=== PATIENT | female | born 1960 | race Caucasian/White ===

== ENCOUNTER 2016-10-28 22:24 | Emergency (ER) | payer MEDICARE ==
[~2016-10-28] VITALS: Ht 152.4 cm; Wt 87.0 kg
[2016-10-28 22:34] VITALS: BP 157/92; PULSE 90; RESP 16; TEMP 98.3; O2SAT 99
[2016-10-29] MEDS ORDERED: TETANUS/DIPHTHERIA TOXOID ADULT 0.5 ML VIAL IM ONE (00:30)
--- NOTE | 2016-10-29 00:57 | RADHPO ---
EXAM DATE/TIME: 10/29/2016 00:43 [place] COMPARISON: No previous studies available for comparison. INDICATIONS : Right hand pain with swelling. MEDICAL HISTORY : None. SURGICAL HISTORY : None. ENCOUNTER: Initial ACUITY: 1 day PAIN SCORE: 8/10 LOCATION: Right upper extremity FINDINGS: 3 views of the right hand reveal an acute fracture involving the base of the fourth and fifth metacar pals. Both have extension to the articular surface. No significant distraction or angulation. Remaini ng bony structures are intact. Dorsal soft tissue swelling noted. CONCLUSION: Acute fourth and fifth metacarpal fractures as detailed above. Don Myers Jr., MD on October 29, 2016 at 0:55 Board Certified Radiologist. This report was verified electronically.
[2016-10-29] MEDS ORDERED: ONDANSETRON ODT 4 MG TAB PO ONE (01:15)
[2016-10-29] MEDS ORDERED: ACETAMINOPHEN/HYDROcodone 325 MG/5 MG TAB PO ONE (01:15)
--- NOTE | 2016-10-29 01:17 | PD ---
HPI Chief Complaint: Injury Time Seen by Provider: 00:17 Travel History International Travel<30 days: No Contact w/Intl Traveler<30days: No Traveled to known affect area: No History of Present Illness HPI 56-year-old female presents to the emergency department by private transportation for injury to her right hand and abrasion to her right knee. Reportedly just prior to arrival to the emergency department patient had non- syncopal trip and fall over her dogs injuring her right hand with deformity of her right fourth finger and abrasion to her right knee. Patient states she did not hit her head did not have loss of consciousness did not injure her neck back chest ribs abdomen or pelvis. Patient's tetanus status is not current. Patient is diabetic. Patient states she was able to reduce her finger back into normal alignment after injury. Patient denies any finger or hand wrist forearm elbow upper arm or shoulder numbness tingling or weakness. Patient rates her hand pain 9/10 in intensity. Patient is noted to have bruising and swelling of the hand with no open wounds of the hand or fingers. PFSH Past Medical History Narrative Medical Diabetes hypertension depression and hypothyroidism 3 no tobacco use no alcohol use nursing notes reviewed Depression: Yes Cardiovascular Problems: Yes (HTN) Diabetes: Yes Patient Takes Glucophage: Yes (0900 10/28/16) Diminished Hearing: No Hypertension: Yes Thyroid Disease: Yes (HYPOTHYROIDISM) Tetanus Vaccination: Unknown Influenza Vaccination: Yes ?: Not LMP: MENOPAUSE Menopausal: Yes Past Surgical History Section: Yes Gynecologic Surgery: Yes ( X 3) Social History Alcohol Use: No Tobacco Use: No Substance Use: No Allergies-Medications (Allergen,Severity, Reaction): Coded Allergies: No Known Allergies (Unverified , 10/28/16) Reported Meds & Prescriptions Reported Meds & Active Scripts Active Zofran Odt (Ondansetron Odt) 4 Mg Tab 4 Mg SL Q6HR PRN Lortab (Hydrocodone-Acetaminophen) 5-325 Mg Tab 1 Tab PO Q6H PRN Reported Synthroid (Levothyroxine Sodium) 125 Mcg Tab 125 Mcg PO DAILY Metformin (Metformin HCl) 1,000 Mg Tab 1,000 Mg PO BIDPC With meals Amaryl (Glimepiride) 1 Mg Tab 1 Mg PO DAILY Take with breakfast or first main meal Toprol XL (Metoprolol Succinate) 25 Mg Tab 25 Mg PO DAILY Hyzaar (Losartan-Hydrochlorothiazide) 100-12.5 Mg Tab 1 Tab PO DAILY Celexa (Citalopram Hydrobromide) 20 Mg Tab 20 Mg PO DAILY Review of Systems Except as stated in HPI: all other systems reviewed are Neg Physical Exam Narrative GENERAL: Well-developed well-nourished obese female in no acute distress no respiratory distress; GCS 15 SKIN: Warm and dry. HEAD: Normocephalic. Atraumatic. EYES: No scleral icterus. No injection or drainage. NECK: Supple, trachea midline. No JVD or lymphadenopathy. No midline tenderness to direct palpation along the cervical spine no bony step-off. CARDIOVASCULAR: Regular rate and rhythm without murmurs, gallops, or rubs. RESPIRATORY: Breath sounds equal bilaterally. No accessory muscle use. GASTROINTESTINAL: Abdomen soft, non-tender, nondistended. MUSCULOSKELETAL: No cyanosis, or edema. Swelling and ecchymosis of the right hand with decreased range of motion of the digit secondary to soft tissue swelling and secondary to pain capillary refill brisk and less than 2 seconds per digit no proximal hand pain no wrist pain or decreased range of motion of the wrist forearm is without deformity elbow is nontender and demonstrates intact range of motion upper arm is nontender without deformity shoulder exam is normal. Radial and ulnar pulses 2+ to palpation. Patient has abrasion of the right knee range of motion intact no soft tissue swelling or effusion distally extremity is neurovascular tendon intact. BACK: Nontender without obvious deformity. No CVA tenderness. Data Data Last Documented VS Vital Signs Date Time Temp Pulse Resp B/P Pulse Ox O2 Delivery O2 Flow Rate FiO2 10/29/16 02:10 92 18 141/62 96 Room Air 10/28/16 22:34 98.3 Orders Hand, Complete ([id number]) (10/29/16 ) Tetanus/Diphtheria Tox Adult (Tetanus/Di (10/29/16 00:30) Ice/Cold Pack (10/29/16 00:17) Wound Care (10/29/16 00:17) Acetamin-Hydrocod 325-5 Mg ([place] 5-325 (10/29/16 01:15) Ondansetron Odt (Zofran Odt) (10/29/16 01:15) Splint Or Brace Apply/Monitor (10/29/16 01:06) Support Splint (10/29/16 01:06) Sling Cradle Arm (10/29/16 ) Fiberglass Splint Forearm Adul (10/29/16 ) [facility] Medical Decision Making Medical Screen Exam Complete: Yes Emergency Medical Condition: Yes Medical Record Reviewed: Yes Interpretation(s) Last Impressions Hand X-Ray 10/29/16 0000 Signed Impressions: Service Date/Time: Saturday, October 29, 2016 00:43 - CONCLUSION: Acute fourth and fifth metacarpal fractures as detailed above. Don Myers Jr., MD Differential Diagnosis Sprain strain subluxation dislocation fracture contusion abrasion Narrative Course Ice pack applied; tetanus status updated; wound sites cleansed; imaging studies ordered Patient with decreased range of motion secondary soft tissue swelling of the third fourth and fifth digits of the right hand capillary refill is brisk and less than 2 seconds per digit sensory exam is intact imaging studies consistent with nondisplaced fractures of the proximal aspect of the proximal fourth and fifth phalanges of the right hand that appeared to extend into the joint. Diagnosis Primary Impression: Fracture of finger, closed Qualified Code: S62.644A - Closed nondisplaced fracture of proximal phalanx of right ring finger, initial encounter Additional Impressions: Finger fracture, right Qualified Code: S62.609A - Finger fracture, right, closed, initial encounter Knee abrasion Qualified Code: S80.211A - Knee abrasion, right, initial encounter Referrals: Hand Surgeon 3 days Patient Instructions: General Instructions Additional Instructions: Follow-up with hand surgeon; on-call hand surgeon Dr. Briones; call office on Monday to schedule follow-up appointment for finger fractures Return to the emergency department for any concerns or change in condition Take pain medication as prescribed as needed as tolerated Take medication as prescribed as needed for nausea and/or vomiting Elevate hand intermittently Apply ice to hand intimately for first 12-24 hours to decrease swelling Keep abrasion clean and dry Med/Other Pt SpecificInfo: Prescription(s) given Scripts Ondansetron Odt (Zofran Odt)4 Mg Tab4 Mg SL Q6HR PRN (Nausea/Vomiting) #10 TAB Ref 0 Prov:Betsy Aceves MD 10/29/16 Hydrocodone-Acetaminophen (Lortab)5-325 Mg Tab1 Tab PO Q6H PRN (PAIN) #15 TAB Ref 0 Prov:Betsy Aceves MD 10/29/16 Disposition: 01 DISCHARGE HOME Condition: Stable Betsy Aceves MD Oct 29, 2016 01:17
[2016-10-29 02:10] VITALS: BP 141/62; PULSE 92; RESP 18; O2SAT 96
[2016-10-29] MEDS ORDERED: HYDR-3533 PO ×2 (02:41→02:42)
[2016-10-29] MEDS ORDERED: ZOFR4TAB3 SL ×2 (02:41→02:42)
[2016-10-31] MEDS ORDERED: GLIM1 PO (10:02)
[2016-10-31] MEDS ORDERED: METF1000 PO (10:02)
[2016-10-31] MEDS ORDERED: HYZA100T2 PO (10:02)
[2016-10-31] MEDS ORDERED: LEVO.125 PO (10:02)
[2016-10-31] MEDS ORDERED: CELE20TA PO (10:02)
[2016-10-31] MEDS ORDERED: TOPR25TA PO (10:02)
[2016-11-09] MEDS ORDERED: CEPH-460 PO (12:23)
[2016-11-09] MEDS ORDERED: HYDR-3288 PO (12:23)
== END 2016-10-29 02:56 | disposition home or self-care (01) ==
LOC: PHED 22:24
DX: S62.344A Nondisplaced fracture of base of fourth metacarpal bone, right hand, initial encounter for closed fracture (principal); S62.346A Nondisplaced fracture of base of fifth metacarpal bone, right hand, initial encounter for closed fracture; S80.211A Abrasion, right knee, initial encounter; E11.9 Type 2 diabetes mellitus without complications; I10 Essential (primary) hypertension; E03.9 Hypothyroidism, unspecified; Z23 Encounter for immunization; Z79.84 Long term (current) use of oral hypoglycemic drugs; Z86.59 Personal history of other mental and behavioral disorders; W01.0XXA Fall on same level from slipping, tripping and stumbling without subsequent striking against object, initial encounter
CPT/HCPCS: 29125; 73130; 90471; 90714

== ENCOUNTER → 2016-11-09 | Day surgery (SDC) | payer MEDICARE ==
[~2016-11-09] VITALS: Ht 177.8 cm; Wt 86.5 kg
[~2016-11-09] MED LIST: BUPIVACAINE HCL PF 0.5% 30 ML VIAL ONE; CELE20TA PO; CEPH-460 PO; FAMOTIDINE 20 MG/2 ML VIAL ONE; GLIM1 PO; HYDR-3288 PO; HYDR-3533 PO; HYDROmorphone HCL PF 1 MG/ML VIAL ONE; HYZA100T2 PO; LACTATED RINGER'S 1000 ML INJ 1,000 ML ONE; LEVO.125 PO; LIDOCAINE HCL 2% 50 ML VIAL ONE; METF1000 PO; METOPROLOL TARTRATE 25 MG TAB ONE; MIDAZOLAM HCL 2 MG/2 ML VIAL ONE; MORPHINE SULFATE 4 MG/ML INJ ONE; ONDANSETRON HCL 4 MG/2 ML VIAL IV PUSH ONE; PROPOFOL 200 MG/20 ML AMP IV ONE; SODIUM CHLORIDE 0.9% INJ 50 ML ONE; TOPR25TA PO; ZOFR4TAB3 SL; ceFAZolin INJ 1,000 MG VIAL ONE; fentaNYL CITRATE 250 MCG/5 ML AMP ONE
[2016-11-09 10:00] VITALS: BP 140/89; PULSE 78; RESP 16; TEMP 98; O2SAT 98
[2016-11-09 10:39] LABS: HEMATOCRIT 36.8 % (35.0-46.0); MEAN CELL VOLUME 87.9 FL (80.0-100.0); MEAN CORPUSCULAR HEMOGLOBIN 29.3 PG (27.0-34.0); MEAN CORPUSCULAR HGB CONC 33.3 % (32.0-36.0); PLATELET COUNT 170 TH/MM3 (150-450); RED BLOOD COUNT 4.18 MIL/MM3 (4.00-5.30); RED CELL DISTRIBUTION WIDTH 12.6 % (11.6-17.2); REVIEW FLAG FINAL; WHITE BLOOD COUNT 6.6 TH/MM3 (4.0-11.0)
[2016-11-09 13:18] VITALS: PULSE 92
--- NOTE | 2016-11-09 13:48 | MP ---
cc: ADONIS BRIONES III, M.D. DATE OF SURGERY: 11/09/2016 PREOPERATIVE DIAGNOSIS Right fourth and fifth proximal phalanx fractures. POSTOPERATIVE DIAGNOSIS Right fourth and fifth proximal phalanx fractures. PROCEDURE 1. Closed reduction and percutaneous pinning with manipulation, right fourth proximal phalanx. 2. Closed reduction and percutaneous pinning with manipulation, right fifth proximal phalanx. 3. Use of image intensifier. SURGEON Adonis Briones III, MD DETAILS OF PROCEDURE The patient was brought to the operating room and placed supine on the operating table. After the correct sites and side of surgery were verified by members of each team in the room multiple times including the patient and myself and after adequate general anesthesia was achieved and after an adequate preoperative timeout was performed, the right upper extremity was prepped and draped in traditional sterile surgical fashion. A 50/50 mixture of 2% plain lidocaine and 0.5% plain Marcaine was infiltrated in the skin and subcutaneous tissue in the area of the injuries and skin where the pins may be located. Using mini C-arm and manipulation and fifth proximal phalanx was reduced first and secured in place using two separate crossing 0.035 cm K-wires at differing angles. The fourth proximal phalanx was addressed next and using large 0.045 cm K-wires was reduced and secured near anatomic position and a separate 0.035 cm K-wire from the opposite direction was inserted given the slightly more complex nature of the fracture. Examination was performed. There was no malangulation or malrotation. Capillary refill was less than two seconds the entire time. The pins were all tailored to length, cut and bent. Jurgan balls were applied. Final x-rays were obtained. Additional local anesthetic was injected for postoperative pain control. Betadine and Xeroform were applied around the Jurgan balls. A well-padded, well-molded whole hand immobilizing volar splint with a dorsal shield was made. The patient was awakened from anesthesia and transported to the post-anesthesia care unit awake and in stable condition at the end of the case. The sponge, needle and instrument counts were correct at the end of the case as reported by the nurses in the room. MD JANNETH Hancock III/RENE /1:25 PM /1:38 PM
[2016-11-09 15:43] VITALS: BP 115/86; PULSE 86; RESP 16; TEMP 97.9; O2SAT 96
--- NOTE | 2016-11-10 18:47 | EKG ---
Date Performed: 11/09/2016 Time Performed: 10:13:34 PTAGE: 56 years EKG: Sinus rhythm . Poor R wave progression - probable normal variant Borderline ECG NO PREVIOUS TRACING DOCTOR: Zhang Hurtado Interpretating Date/Time 11/10/2016 18:43:49
== END | disposition home or self-care (01) ==
LOC: PHSDC 09:39
PROVIDERS: ATTEND Orthopaedic Surgery Hand Surgery
DX: S62.614A Displaced fracture of proximal phalanx of right ring finger, initial encounter for closed fracture (principal); S62.616A Displaced fracture of proximal phalanx of right little finger, initial encounter for closed fracture; E11.9 Type 2 diabetes mellitus without complications; X58.XXXA Exposure to other specified factors, initial encounter; Z79.84 Long term (current) use of oral hypoglycemic drugs; Z01.818 Encounter for other preprocedural examination; Z01.810 Encounter for preprocedural cardiovascular examination
CPT/HCPCS: 01820; 26727; 76000; 85027; 93005; J0690; J1170; J2250; J2270; J2405; J3010; J7120